=== PATIENT | male | born 1950 | race Caucasian/White ===

== ENCOUNTER → 2017-01-17 | Outpatient (CLI) | payer OTHER | LOC: BRMIMAGING 13:00 | PROVIDERS: ATTEND Physician Assistant Medical | DX: N44.1 Cyst of tunica albuginea testis (principal); R93.8 Abnormal findings on diagnostic imaging of other specified body structures | CPT/HCPCS: 76870-PO ==

== ENCOUNTER → 2017-01-23 | Outpatient (CLI) | payer OTHER ==
[~2017-01-23] MED LIST: IOPAMIDOL (ISOVUE-300) 100 ML BTL ONE
== END ==
LOC: CIMAGING 11:03
PROVIDERS: ATTEND Physician Assistant Medical
DX: Z01.811 Encounter for preprocedural respiratory examination (principal); D40.10 Neoplasm of uncertain behavior of unspecified testis; K62.89 Other specified diseases of anus and rectum; I70.0 Atherosclerosis of aorta
CPT/HCPCS: 71020-PO; 74177-PO; Q9967

== ENCOUNTER 2017-01-31 13:21 | Day surgery (SDC) | payer OTHER ==
--- NOTE | 2017-01-30 17:22 | GHP ---
[f rep st] PREOP HISTORY AND PHYSICAL ADMISSION DIAGNOSIS: Left testicular mass. This is a 66-year-old gentleman who presented with a left testicular mass and an ultrasound that shows 1.2 x 0.8 x 1.1, testicular mass with suspicion for malignancy. 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 No abdominal pelvic lymphadenopathy. No pelvic or abdominal metastasis and atherosclerotic vascular disease without aneurysm. He had had preoperative laboratory values that showed a comprehensive Chemistry panel is normal. TSH was 2.14. He had a PSA of 0.70 and CBC was normal. At the present time, he is admitted for a left radical inguinal orchiectomy. PAST MEDICAL HISTORY: He has had COPD, GERD, hypertension. PAST SURGICAL HISTORY: Vasectomy. MEDICATION: Anoro Ellipta inhaler, ProAir HFA 90, quinine, sulfate, ranitidine , simvastatin and valsartan. ALLERGIES: None. FAMILY HISTORY: Noncontributory. SOCIAL HISTORY: Light alcoholic consumption, former smoker, . REVIEW OF SYSTEMS: Negative cardiac, respiratory, GI and endocrine. PHYSICAL EXAM: VITAL SIGNS: In the office blood pressure is 129/80. HEENT: Head, ears, eyes, nose, throat normal. CHEST: Clear. HEART: Regular rate and rhythm. ABDOMEN: Normal. No organomegaly, rebound or guarding. EXTREMITIES : Lower extremities are normal. GENITALIA: Normal. He had a nodule present on the left testicle compatible with the ultrasound findings. He had a prostate exam that was normal. At the present time, he is admitted for the left inguinal orchiectomy. We will confirm preoperative tumor markers done. If they are not, will have them drawn before removal of the testicle. /[id number]/MODL MTDD
[2017-01-31] MEDS ORDERED: ceFAZolin 2 GM/DEXTROSE 100 ML IV ONE (13:30)
[2017-01-31] MEDS ORDERED: D5W LR 1,000 ML IV SCH (13:30)
--- NOTE | 2017-01-31 13:52 | CPEKG ---
Heart Rate: 68 RR Interval: 882 P-R Interval: 144 QRSD Interval: 86 QT Interval: 400 QTC Interval: 426 P [place]: 72 QRS [place]: 60 T Wave [place]: 50 EKG Severity - NORMAL ECG - EKG Impression: SINUS RHYTHM Electronically Signed By: Daryl Avalos 31-Jan-2017 20:53:10
[2017-01-31] MEDS ORDERED: LIDOCAINE 1% 5 ML SDV ID PRN (14:10)
[2017-01-31] MEDS ORDERED: LR 1,000 ML IV ONE (14:10)
[2017-01-31] MEDS ORDERED: LIDOCAINE 1% 2 ML INJ ONE (14:14)
[2017-01-31] MEDS ORDERED: BUPIVACAINE 0.5% 30 ML SDV ONE (15:03)
[2017-01-31] MEDS ORDERED: ONDANSETRON 4 MG/2 ML VIAL ONE (15:11)
[2017-01-31] MEDS ORDERED: DEXAMETHASONE 4 MG/ML VIAL ONE (15:11)
[2017-01-31] MEDS ORDERED: LIDOCAINE 2% 100 MG/5 ML SYR ONE (15:11)
[2017-01-31] MEDS ORDERED: PROPOFOL 200 MG/20 ML VIAL ONE (15:12)
[2017-01-31] MEDS ORDERED: fentaNYL 100 MCG/2 ML INJ ONE ×2 (15:12→17:38)
[2017-01-31] MEDS ORDERED: MIDAZOLAM 2 MG/2 ML VIAL ONE (15:58)
--- NOTE | 2017-01-31 17:35 | GOP ---
[f rep st] OPERATIVE REPORT DATE OF OPERATION: 01/31/2017 SURGEON: Kaleb Jimenez MD ANESTHESIA: Benji Keith MD provided general anesthesia. PREOPERATIVE DIAGNOSIS: Left testicular mass. POSTOPERATIVE DIAGNOSIS: Left testicular mass. PROCEDURE PERFORMED: Left inguinal radical orchiectomy. FINDINGS: DESCRIPTION OF PROCEDURE: After undergoing appropriate general anesthetic and being prepped and ranjana ped in normal sterile fashion, and time-out, he had a left inguinal incision that was carried down t hrough subcutaneous fat and through the external oblique fibers, and then a Du drain was placed around that to occlude the vessels. The testicle was brought out of the right hemiscrotum, and all the tunics and cremasterics were removed. We divided the cord into 2 parts and ligated with 0 Vicr yl suture ligature twice on its transected part. Hemostasis was noted. Used 20 cc of local anesthe tic and closed the wound in layers with 3-0 Vicryl, and intradermal 4-0 Monocryl was used. Dermabon d was placed. He tolerated the procedure well and specimen was sent for permanent sections. His preop CAT scans were normal, and blood work is pending at the time of this dictation; it was dra avery just before surgery. He will be discharged home to have followup with me in the office in 2 week s. /[id number]/MODL
[2017-01-31] MEDS ORDERED: HYDROCODONE/APAP 5/325 TAB ONE (18:25)
[2017-01-31 18:53] LABS: LACTATE DEHYDROGENASE 535 IU/L (313-618)
[2017-01-31 19:29] LABS: ALPHA-FETOPROTEIN TUMOR MARKER 4.31 ng/mL (0.00-7.51)
== END 2017-01-31 18:52 | disposition home or self-care (01) ==
LOC: FSGY 13:21 → F1N 13:21 → UNDOADMOB 13:21 → FSGY 18:52
PROVIDERS: ATTEND Specialist
PROC: 0VTB0ZZ Resection of Left Testis, Open Approach (ICD-10-PCS; principal; 2017-01-31 15:30)
DX: D40.12 Neoplasm of uncertain behavior of left testis (principal); K76.89 Other specified diseases of liver; K57.30 Diverticulosis of large intestine without perforation or abscess without bleeding; J44.9 Chronic obstructive pulmonary disease, unspecified; K21.9 Gastro-esophageal reflux disease without esophagitis; I10 Essential (primary) hypertension; Z87.891 Personal history of nicotine dependence
CPT/HCPCS: 84702-90; J0690; J1100; J2001; J2250; J2405; J2704; J3010

== ENCOUNTER → 2018-01-01 | Outpatient (CLI) | payer OTHER | LOC: BRMIMAGING 07:51 | PROVIDERS: ATTEND Physician Assistant Medical | DX: R59.0 Localized enlarged lymph nodes (principal) ==

== ENCOUNTER → 2018-01-31 | Outpatient (CLI) | payer OTHER | LOC: CIMAGING 08:21 | PROVIDERS: ATTEND Physician Assistant Medical | DX: R22.1 Localized swelling, mass and lump, neck (principal); I10 Essential (primary) hypertension; R25.2 Cramp and spasm; E78.5 Hyperlipidemia, unspecified; Z79.899 Other long term (current) drug therapy | CPT/HCPCS: 70491; Q9967 ==

== ENCOUNTER → 2018-04-21 | Outpatient (CLI) | payer OTHER | LOC: CIMAGING 08:17 | PROVIDERS: ATTEND Physician Assistant Medical | DX: C62.90 Malignant neoplasm of unspecified testis, unspecified whether descended or undescended (principal); N44.2 Benign cyst of testis; K76.0 Fatty (change of) liver, not elsewhere classified | CPT/HCPCS: 74177; Q9967; 36415-PO; 82565-PO; 83625-90; 84402-90; 84702-90 ==